=== PATIENT | male | born 1970 | race American Indian/Alaskan Native ===

== ENCOUNTER 2017-12-13 00:48 | Observation (INO) | payer BC ==
[2017-12-13 00:58] VITALS: BMI 35.5
--- NOTE | 2017-12-13 01:24 | ED PDOC ---
Arrival/HPI <Darin Hernandez - Last Filed: 12/13/17 02:42> <Steve Sands - Last Filed: 12/13/17 02:43> - General Chief Complaint: Chest Pain - History of Present Illness Narrative History of Present Illness (Text): 12/13/17 01:17 Pt is a 47 yo M with PMH of CAD s/p 5 stents in 2007 presents to ED with chest pain. Pt states that he initially had left shoulder pain that felt like it radiated to his chest. Pt went to his orthopedist who said he had bone spurs in his left shoulder and gave him a cortisone injection. Pt states that shoulder still hurts after injection. However, prior to arrival patient states that midsternal chest pain worsened, but does not radiate. Pt states that he vomited several times before arrival and was short of breath. Of note, patient had exercise stress test in 2016, which was normal. Pt denied abdominal pain, diarrhea, fever, chills, DAS, or dizziness. PMD: Avery Actuarial Technician: Navin (Steve Sands) Past Medical History - Provider Review Nursing Documentation Reviewed: Yes - Infectious Disease Hx of Infectious Diseases: None - Tetanus Immunization Tetanus Immunization: Unknown - Cardiac Hx ID: Yes Hx Hypertension: Yes - Pulmonary Hx Respiratory Disorders: No - Neurological Hx Neurological Disorder: No - HEENT Hx HEENT Disorder: No - Renal Hx Renal Disorder: No - Endocrine/Metabolic Hx Endocrine Disorders: No - Hematological/Oncological Hx Blood Disorders: No - Integumentary Hx Dermatological Disorder: No - Musculoskeletal/Rheumatological Hx Musculoskeletal Disorders: No - Gastrointestinal Hx Gastrointestinal Disorders: No - Genitourinary/Gynecological Hx Genitourinary Disorders: No - Psychiatric Hx Psychophysiologic Disorder: No Hx Substance Use: No - Surgical History Hx Cardiac Catheterization: Yes (5 stents) <Steve Sands - Last Filed: 12/13/17 02:43> Family/Social History - Physician Review Nursing Documentation Reviewed: Yes Family/Social History: No Known Family HX Smoking Status: Former Smoker Hx Alcohol Use: No Hx Substance Use: No <Steve Sands - Last Filed: 12/13/17 02:43> Allergies/Home Meds <Darin Hernandez - Last Filed: 12/13/17 02:42> <Steve Sands - Last Filed: 12/13/17 02:43> Allergies/Adverse Reactions: Allergies No Known Allergies Allergy (Verified 12/13/17 00:58) Home Medications: Home Meds Medication Instructions Recorded Confirmed Atorvastatin [Lipitor] 80 mg PO DAILY 05/14/16 12/13/17 Clopidogrel [Plavix] 75 mg PO DAILY 05/14/16 12/13/17 Isosorbide Mononitrate ER [Imdur 30 mg PO DAILY 07/11/16 12/13/17 ER] Metoprolol Tartrate [Lopressor] 25 mg PO BID 07/11/16 12/13/17 Review of Systems - Review of Systems Constitutional: Normal Eyes: Normal ENT: Normal Respiratory: SOB Cardiovascular: Chest Pain. absent: Palpitations, Syncope Gastrointestinal: Normal Genitourinary Male: Normal Musculoskeletal: Arthralgias (left shoulder) Skin: Normal Neurological: Normal Endocrine: Normal Hemo/Lymphatic: Normal Psychiatric: Normal <Steve Sands - Last Filed: 12/13/17 02:43> Physical Exam Vital Signs Reviewed: Yes Temperature: Afebrile Blood Pressure: Hypertensive Pulse: Regular Respiratory Rate: Normal Appearance: Positive for: Non-Toxic Pain Distress: Moderate Mental Status: Positive for: Alert and Oriented X 3 - Systems Exam Head: Present: Atraumatic, Normocephalic Extroacular Muscles: Present: EOMI Mouth: Present: Moist Mucous Membranes Neck: Present: Normal Range of Motion Respiratory/Chest: Present: Clear to Auscultation. No: Respiratory Distress, Wheezes, Rales, Rhonchi Cardiovascular: Present: Regular Rate and Rhythm, Normal S1, S2. No: Murmurs, Rub, Muffled Abdomen: No: Tenderness, Distention, Peritoneal Signs, Rebound Back: Present: Normal Inspection Upper Extremity: Present: Normal Inspection Lower Extremity: Present: Normal Inspection Neurological: Present: GCS=15 Skin: Present: Warm, Dry, Normal Color Psychiatric: Present: Alert, Oriented x 3 <Steve Sands - Last Filed: 12/13/17 02:43> Vital Signs Temp Pulse Resp BP Pulse Ox 12/13/17 02:16 99 H 18 149/101 H 100 12/13/17 01:21 98.3 F 95 H 18 163/93 H 100 Medical Decision Making <Darin Hernandez - Last Filed: 12/13/17 02:42> - EKG Interpretation Interpreted by ED Physician: Yes Type: 12 lead EKG Comparison: Similar to previous EKG (Similar to EKG from exercise stress test in 2016.) <Steve Sands - Last Filed: 12/13/17 02:43> ED Course and Treatment: 12/13/17 01:40 Shaji Pettit is a 47 year old male who presents to the emergency department complaining of chest pain.In agreement with resident note, which includes further HPI details. Patient was seen and evaluated with resident, came up with plan and treatment together. (Darin Hernandez) 12/13/17 01:32 Assessment: 47 yo M with PMH of CAD s/p stents presents to ED with chest pain. Plan: - Labs - Cardiac enzymes - EKG - CXR - ASA - Nitro SL 12/13/17 02:18 EKG showed NSR, possible inferior infarct, age undetermined, ST and T wave abnormality, consider anterolateral ischemia. Troponin I 0.07. Discussed results with patient and advised patient that he should be admitted due to his symptoms and history of CAD with stents. Patient acknowledged and agreed. 12/13/17 02:[address] Lind, he agrees with plan and accepts patient under hospitalist service. resident care manager rn made aware. (Steve Sands) - Lab Interpretations Lab Results: 12/13/17 01:19 12/13/17 01:19 Lab Results 12/13/17 01:19: PT 11.0, INR 0.97, APTT 29.5 12/13/17 01:19: Sodium 138, Potassium 4.0, Chloride 101, Carbon Dioxide 22, Anion Gap 20, BUN 17, Creatinine 0.9, Est GFR ( Amer) > 60, Est GFR (Non- Af Amer) > 60, Random Glucose 228 H, Calcium 9.6, Total Bilirubin 0.3, AST 29, ALT 43, Alkaline Phosphatase 67, Lactate Dehydrogenase 487, Total Creatine Kinase 394 H, CK-MB (CK-2) 1.5, CK-MB (CK-2) % Cancelled, Troponin I 0.07, Total Protein 7.6, Albumin 4.4, Globulin 3.2, Albumin/Globulin Ratio 1.4 12/13/17 01:19: WBC 7.8, RBC 4.75, Hgb 15.0, Hct 44.0, MCV 92.6, MCH 31.6, MCHC 34.1, RDW 13.0, Plt Count 250, MPV 9.9, Gran % 81.0 H, Lymph % (Auto) 17.3 L, [place] % (Auto) 1.0, Eos % (Auto) 0.3 L, Baso % (Auto) 0.4, Gran # 6.32, Lymph # ( Auto) 1.4, [place] # (Auto) 0.1, Eos # (Auto) 0.0, Baso # (Auto) 0.03 - RAD Interpretation Radiology Orders: 12/13/17 01:13 CHEST PORTABLE [RAD] Stat - EKG Interpretation EKG Interpretation (Text): 12/13/17 01:40 NSR Possible inferior infarct, age undetermined ST and T wave abnormality, consider anterolateral ischemia (Steve Sands) - Medication Orders Current Medication Orders: Discontinued Medications Aspirin (Aspirin) 325 mg PO STAT STA Stop: 12/13/17 01:37 Last Admin: 12/13/17 01:46 Dose: 325 mg Nitroglycerin (Nitrostat Sl Tab) 0.4 mg SL STAT STA Stop: 12/13/17 01:37 Last Admin: 12/13/17 01:47 Dose: 0.4 mg - PA / [employer] / Resident Statement CRISTIANA has reviewed & agrees with the documentation as recorded. CRISTIANA has examined the patient and agrees with the treatment plan. <Darin Hernandez - Last Filed: 12/13/17 02:42> Disposition/Present on Arrival <Darin Hernandez - Last Filed: 12/13/17 02:42> - Present on Arrival Any Indicators Present on Arrival: No History of DVT/PE: No History of Uncontrolled Diabetes: No Urinary Catheter: No History of Decub. Ulcer: No History Surgical Site Infection Following: None - Disposition Have Diagnosis and Disposition been Completed?: Yes Disposition Time: :27 Patient Plan: Admission <Steve Sands - Last Filed: 12/13/17 02:43> - Disposition Diagnosis: Chest pain Disposition: HOSPITALIZED Patient Problems: Current Active Problems Problem Status Onset Chest pain Acute Condition: STABLE Discharge Instructions (ExitCare): Chest Pain (ED) Forms: [employer] ([place])
[2017-12-13 01:54] LABS: ALB/GLOB RATIO 1.4 (1.1-1.8); ALBUMIN 4.4 g/dL (3.0-4.8); ALT/SGPT 43 U/L (7-56); AST/SGOT 29 U/L (17-59); BLOOD UREA NITROGEN 17 mg/dL (7-21); CALCIUM 9.6 mg/dL (8.4-10.5); GFR AFRICAN-AMERICAN > 60; GFR NON-AFRICAN AMERICAN > 60
[2017-12-13 01:58] LABS: BASO # 0.03 K/mm3 (0.0-2.0); BASO % 0.4 % (0.0-3.0); EOS % 0.3 % (1.5-5.0); GRAN # 6.32 (1.4-6.5); LYMPH # 1.4 (1.2-3.4); LYMPH % 17.3 % (22.0-35.0); MEAN CELL VOLUME 92.6 fl (80.0-105.0); MEAN CORPUSCULAR HEMOGLOBIN 31.6 pg (25.0-35.0); MEAN CORPUSCULAR HGB CONC 34.1 g/dl (31.0-37.0); MEAN PLATELET VOLUME 9.9 fl (7.0-11.0); MONO # 0.1 (0.1-0.6); RBC 4.75 10^6/uL (3.5-6.1); WHITE BLOOD COUNT 7.8 10^3/ul (4.5-11.0)
[2017-12-13 01:59] LABS: INR 0.97 (0.93-1.08); PARTIAL THROMBOPLASTIN TIME 29.5 Seconds (25.1-36.5)
[2017-12-13 02:05] LABS: TROPONIN I 0.07 ng/mL
[2017-12-13 02:10] LABS: CK-MB 1.5 ng/mL (0.0-3.6)
--- NOTE | 2017-12-13 03:18 | CP.PCM.HP ---
History of Present Illness - History of Present Illness History of Present Illness: This patient is a 47 year old male with PMHx of HTN and CAD w/ 5 stents who presents complaining of non-reproducible sub-sternal chest pain. Patient states he has been dealing with shoulder pain for about 2 weeks. He got an X- ray which showed bone spurs. He went to the doctor and got a cortisone injection about 8:00PM last night. He ate at [employer] around 9:30 PM then went home to sleep. He was awakened with sharp 7/10 chest pain and shoulder pain around 12:30 this morning. He describes it as shoulder pain that radiates to his chest. Upon waking up he also had an episode of NBNB vomiting. He came to the E.R following that episode. Patient used no modalities at home to treat the pain. His chest pain began to resolve when he came to the ED but his shoulder pain remained at the same level. At the time of admission examination he rated his chest pain a 1/10 and stated it became more achy than sharp. ROS POSITIVES: Chest pain, Shoulder pain, Vomiting. NEGATIVES: Fever, chills, SOB, palpitations, abdominal pain, nausea, changes in bowel habits, urinary symptoms. PMHx: HTN, CAD PSHx: Cardiac Cath with Stent in 2007 Allergies: NKDA Social Hx: Former 1PPD smoker for about 5 years. Quit 9 months ago. Drinks alcohol on weekends. 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 Holden Present on Admission - Present on Admission Any Indicators Present on Admission: No Review of Systems - Review of Systems Review of Systems: As per HPI Past Patient History - Infectious Disease Hx of Infectious Diseases: None - Tetanus Immunizations Tetanus Immunization: Unknown - Past Social History Smoking Status: Former Smoker - CARDIAC Hx Heart Attack: Yes Hx Hypertension: Yes - PULMONARY Hx Respiratory Disorders: No - NEUROLOGICAL Hx Neurological Disorder: No - HEENT Hx HEENT Problems: No - RENAL Hx Chronic Kidney Disease: No - ENDOCRINE/METABOLIC Hx Endocrine Disorders: No - HEMATOLOGICAL/ONCOLOGICAL Hx Blood Disorders: No - INTEGUMENTARY Hx Dermatological Problems: No - MUSCULOSKELETAL/RHEUMATOLOGICAL Hx Musculoskeletal Disorders: No - GASTROINTESTINAL Hx Gastrointestinal Disorders: No - GENITOURINARY/GYNECOLOGICAL Hx Genitourinary Disorders: No - PSYCHIATRIC Hx Psychophysiologic Disorder: No Hx Substance Use: No - SURGICAL HISTORY Hx Cardiac Catheterization: Yes (5 stents) Meds Allergies/Adverse Reactions: Allergies Allergy/AdvReac Type Severity Reaction Status Date / Time No Known Allergies Allergy Verified 12/13/17 00:58 Physical Exam - Constitutional Appears: Well, Non-toxic, No Acute Distress - Head Exam Head Exam: ATRAUMATIC, NORMAL INSPECTION, NORMOCEPHALIC - Eye Exam Eye Exam: EOMI, Normal appearance. absent: Scleral icterus - ENT Exam ENT Exam: Mucous Membranes Moist - Respiratory Exam Respiratory Exam: Clear to Auscultation Bilateral, NORMAL BREATHING PATTERN. absent: Accessory Muscle Use, Decreased Breath Sounds, Rales, Rhonchi, Wheezes, Respiratory Distress, Stridor - Cardiovascular Exam Cardiovascular Exam: RRR, +S1, +S2. absent: JVD - GI/Abdominal Exam GI & Abdominal Exam: Normal Bowel Sounds, Soft. absent: Tenderness - Extremities Exam Extremities exam: Positive for: normal capillary refill, normal inspection. Negative for: calf tenderness, pedal edema, tenderness - Neurological Exam Neurological exam: Alert, Oriented x3 - Psychiatric Exam Psychiatric exam: Normal Affect, Normal Mood - Skin Skin Exam: Dry, Intact, Normal Color, Warm Results - Vital Signs Recent Vital Signs: Last Vital Signs Temp 98.3 F 12/13/17 01:21 Pulse 101 H 12/13/17 02:56 Resp 18 12/13/17 02:56 BP 148/91 H 12/13/17 02:56 Pulse Ox 100 12/13/17 02:56 - Labs Result Diagrams: 12/13/17 01:19 12/13/17 01:19 Labs: Laboratory Results - last 24 hr 12/13/17 12/13/17 12/13/17 01:19 01:19 01:19 WBC 7.8 RBC 4.75 Hgb 15.0 Hct 44.0 MCV 92.6 MCH 31.6 MCHC 34.1 RDW 13.0 Plt Count 250 MPV 9.9 Gran % 81.0 H Lymph % (Auto) 17.3 L [place] % (Auto) 1.0 Eos % (Auto) 0.3 L Baso % (Auto) 0.4 Gran # 6.32 Lymph # (Auto) 1.4 [place] # (Auto) 0.1 Eos # (Auto) 0.0 Baso # (Auto) 0.03 PT 11.0 INR 0.97 APTT 29.5 Sodium 138 Potassium 4.0 Chloride 101 Carbon Dioxide 22 Anion Gap 20 BUN 17 Creatinine 0.9 Est GFR ( Amer) > 60 Est GFR (Non-Af Amer) > 60 Random Glucose 228 H Calcium 9.6 Total Bilirubin 0.3 AST 29 ALT 43 Alkaline Phosphatase 67 Lactate Dehydrogenase 487 Total Creatine Kinase 394 H CK-MB (CK-2) 1.5 CK-MB (CK-2) % Cancelled Troponin I 0.07 Total Protein 7.6 Albumin 4.4 Globulin 3.2 Albumin/Globulin Ratio 1.4 Assessment & Plan - Assessment and Plan (Free Text) Assessment: 47 year old male with PMHx of HTN and CAD w/ 5 stents who presents complaining of non-reproducible sub-sternal chest pain. Admitted to observation for evaluation and treatment of chest pain and to rule out ACS. Plan: Chest Pain, R/O ACS ASA 325/Nitrostat Given in ED Trop 1: 0.07 CXR: PENDING Read EKG: NSR with ST and T wave abnormalities. Similar to EKG seen on Stress Test from 2016. F/U Official Read Cardio Consult (Dr. Holden) Serial EKG's Serial Trops Cont. Home Medications Lipitor 80 Daily. Patient should be advised to take his lipitor in the Evening. Plavix 75 Daily Metoprolol 25 BID ASA 81 Daily HgBA1C in AM Fasting Lipid Panel Right Shoulder Pain DDx: Bone Spur/Rotator Cuff Pathology Ibuprofen 600mg Q6H PRN Toradol 30 IVP Given Once Consider Ortho consult Patient should F/U Outpatient with Orthopedics/Primary Sports Med Physician HTN (Acute on Chronic) Cont. Home Medications Metoprolol 25 BID Hyralazine PRN Consider adding Jose Manuel Inhibitor or ARB Proph PTX/Home Plavix/SCD's Patient discussed with Attending (Dr. Lind) Abril Melgoza, PGY1
[2017-12-13] MEDS: Pantoprazole 40 mg EC Tab PO SCH (05:16)
[2017-12-13 07:04] LABS: BASO # 0.01 K/mm3 (0.0-2.0); BASO % 0.1 % (0.0-3.0); EOS % 0.1 % (1.5-5.0); GRAN # 6.27 (1.4-6.5); GRAN % 79.5 % (50.0-68.0); HEMOGLOBIN 14.8 g/dL (14.0-18.0); LYMPH # 1.4 (1.2-3.4); LYMPH % 17.8 % (22.0-35.0); MEAN CELL VOLUME 91.8 fl (80.0-105.0); MEAN CORPUSCULAR HGB CONC 33.8 g/dl (31.0-37.0); MEAN PLATELET VOLUME 9.9 fl (7.0-11.0); MONO # 0.2 (0.1-0.6); MONO % 2.5 % (1.0-6.0); RBC 4.77 10^6/uL (3.5-6.1); RED CELL DISTRIBUTION WIDTH 12.8 % (11.5-14.5); WHITE BLOOD COUNT 7.9 10^3/ul (4.5-11.0)
[2017-12-13 07:31] LABS: ALB/GLOB RATIO 1.3 (1.1-1.8); ALBUMIN 4.1 g/dL (3.0-4.8); ALT/SGPT 38 U/L (7-56); AST/SGOT 38 U/L (17-59); BLOOD UREA NITROGEN 16 mg/dL (7-21); CALCIUM 9.9 mg/dL (8.4-10.5); GFR AFRICAN-AMERICAN > 60; GFR NON-AFRICAN AMERICAN > 60; HDL CHOLESTEROL 49 mg/dL (29-60)
[2017-12-13 07:33] LABS: LDL CHOLESTEROL 121 mg/dL (0-129)
--- NOTE | 2017-12-13 09:02 | RAD ---
HISTORY: chest pain COMPARISON: No prior. FINDINGS: LUNGS: No active pulmonary disease. PLEURA: No significant pleural effusion identified, no pneumothorax apparent. CARDIOVASCULAR: Normal. OSSEOUS STRUCTURES: No significant abnormalities. VISUALIZED UPPER ABDOMEN: Normal. OTHER FINDINGS: None. IMPRESSION: No active disease.
[2017-12-13] MEDS ORDERED: Enoxaparin 40 mg Syringe SC SCH (10:00)
[2017-12-13 10:55] LABS: CK-MB 12.8 ng/mL (0.0-3.6)
[2017-12-13] MEDS ORDERED: Verapamil 2 ML ONE (14:22)
[2017-12-13] MEDS ORDERED: Lidocaine 2% Inj (20ml) ONE (14:22)
[2017-12-13] MEDS ORDERED: Phenylephrine 10 mg/ml Inj ONE (14:23)
[2017-12-13] MEDS ORDERED: Nitroglycerin 50mg in D5W 50 MG/250 ML BOTTLE IV ONE (14:23)
[2017-12-13] MEDS ORDERED: HEPARIN SODIUM/NS 2,000 ML IV ONE (14:23)
[2017-12-13] MEDS ORDERED: Iohexol 350mgl/ml 50 ML ONE (14:23)
[2017-12-13] MEDS ORDERED: Midazolam 2 MG/2 ML VIAL ONE (15:02)
[2017-12-13] MEDS ORDERED: Eptifibatide 20 mg/10mL Inj IVP ONE (15:31)
[2017-12-13] MEDS ORDERED: Morphine 5 MG/ML SYRINGE ONE (15:36)
[2017-12-13] MEDS ORDERED: Iohexol 350 MG/100 ML VIAL ONE (15:47)
[2017-12-13] MEDS ORDERED: Sodium Chloride 0.9% 1,000 ML IV SCH (16:30)
--- NOTE | 2017-12-13 18:22 | CARD ---
APPROVED REPORT Procedure(s) performed: Left Heart Catheterization PTCA with Stenting of Distal RCA with TRINIDAD PTCA with Stenting of MId Circumflex with TRINIDAD HISTORY The patient is a 47 year-old male with a history of : previous UT (> 7 days), previous diagnostic cath, tobacco history() : The patient is a former smoker , previous PCI (The PCI date was 10/21/2007), hypertension , dyslipidemia , Admitted with NSTEMI /ACS. INDICATION The indication(s) include : non-STEMI . CASE TECHNIQUE The patient was brought emergently to the Cardiac Catheterization Laboratory in a fasting state and was prepped and draped in a sterile manner. The left wrist was infiltrated with 2% Lidocaine subcutaneous anesthesia. A 6FR GLIDESHEATH ACCESS KIT sheath was inserted into the left radial artery without difficulty. Coronary angiography was performed using coronary diagnostic catheters. The left coronary system was accessed and visualized with a Diagnostic ,5 Fr JL 4 catheter. The right coronary system was accessed and visualized with a Diagnostic ,5 Fr JR 4 catheter. The left ventricle was accessed and visualized with a 5 Fr Pigtail 145 (Angled) catheter. Left ventricular/Aortic Valve gradient assessed on pullback. Left ventriculogram was performed in MCCORMICK projection. The patient tolerated the procedure well and there were no complications associated with the procedure. Vessel Analysis The patient's coronary anatomy is co-dominant. The left main coronary artery is a medium size vessel without significant stenosis. The left main bifurcates to the left anterior descending and circumflex. The left anterior descending artery is a medium size vessel with diffuse calcification noted throughout this vessel and without significant stenosis. Patent stent in MIsD LAD The first diagonal branch is a medium size vessel with diffuse calcification noted throughout this vessel and without significant stenosis. The second diagonal branch is a medium size vessel with diffuse calcification noted throughout this vessel and without significant stenosis. The circumflex artery is a large size vessel with diffuse calcification noted throughout this vessel and with significant stenosis. Mid 90% instent restenosis, Patent Distal stent There is a 95% stenosis in the mid segment. The first obtuse marginal branch is a small size vessel with diffuse calcification noted throughout this vessel and without significant stenosis. The second obtuse marginal branch is a small size vessel with diffuse calcification noted throughout this vessel and without significant stenosis. The third obtuse marginal branch is a small size vessel with diffuse calcification noted throughout this vessel and without significant stenosis. The left posterior descending artery is a medium size vessel with diffuse calcification noted throughout this vessel and without significant stenosis. The right coronary artery is a medium size vessel with diffuse calcification noted throughout this vessel and with significant stenosis. There is a 80% stenosis in the distal segment. in B/w two stents The right posterior descending artery is a medium size vessel with diffuse calcification noted throughout this vessel and without significant stenosis. The right posterolateral branch is a medium size vessel with diffuse calcification noted throughout this vessel and without significant stenosis. Left Ventricle The left ventricle is borderline in size with mildly decresed contractility. Ischemic cardiomyopathy. The left ventricular ejection fraction is estimated to be 45-50%. The left ventricular end diastolic pressure is 20 mmHg. There was no gradient across the aortic valve upon pullback. PCI Technique Lesion Anticoagulation was achieved with Heparin. Percutaneous coronary intervention was performed on the Distal right coronary artery. The lesion stenosis prior to intervention was 80% with ARON 2 flow. A 6 Fr JR 4 SH Guide Catheter was used to engage the ostium. A Luge 182 Interventional Guidewire was used to cross the lesion. BALLOON DILATION A Balloon catheter 2.5 x 10 mm Sprinter RX was inserted and inflated up to 18.00atm for 25seconds. STENT DEPLOYMENT A drug-eluting stent 3.0 x 12 mm Resolute TRINIDAD was inserted and inflated up to 18.00atm for 25seconds. Final angiography reveals 0 % stenosis with ARON 3 flow. PCI Technique Lesion 2 Percutaneous Coronary Intervention was performed on the Distal circumflex artery segment. The lesion stenosis prior to intervention was 95% with ARON 2 flow. A 6 Fr XB 3 Guide Catheter was used to engage the ostium. A Luge 182 Interventional Guidewire was used to cross the lesion. BALLOON DILATION A Balloon catheter 2.5 x 10 mm Sprinter RX was inserted and inflated up to 15.00atm for 24seconds. STENT DEPLOYMENT A drug-eluting stent 4.0 x 18 mm Resolute TRINIDAD was inserted and inflated up to 12.00atm for 15seconds. POST STENT DEPLOYMENT BALLOON DILATION A Balloon catheter 4.5 x 10 mm Sprinter RX was inserted and inflated up to 15.00atm for 24seconds. Final angiography reveals 0 % stenosis with ARON 3 flow. Conclusion Two Vessel Critical Disease involving distal RCA in B/w stents 80% stenosis, and Mid Circumflex 90% in stent restenosis. Patent stent in Distal Circumflex and Mid LAD LVEF-45-50%, EDP-20 mmof Hg. Successful pTCA with TRINIDAD of Distal RCA and Mid Circumflex. Recommendations Daily ASA with Plavix for at least one year Aggressive Medical TherapyCardiac Risk Reduction Program Weight Loss Reduction Program CC; DRs. Varela/ Navin.
--- NOTE | 2017-12-13 18:38 | CON ---
DATE: REASON FOR CONSULTATION: Cardiac evaluation, left shoulder pain, history of coronary artery disease. BRIEF CLINICAL HISTORY: This is a 47-year-old male with past medical history significant for coronary artery disease, status post stent in 2007; subsequently, multiple stress tests negative, last stress test was in 2015; who came in with a complaint of left shoulder pain for many years, probably the bony spur. Ultimately, the patient found the doctor who did intra-articular injection around 8 o' clock at night. Around 8:30, then the patient went home and took shower and slept, but then the patient woke up with more pain in the left shoulder radiating into the chest wall, came to the emergency room. It is still painful and movement feels painful. He denies any chest pain, denies any shortness of breath, denies any palpitation. PAST MEDICAL HISTORY: Significant for hypertension, hyperlipidemia, coronary artery disease, status post stent in 2007. ALLERGIES: NO KNOWN DRUG ALLERGIES. SOCIAL HISTORY: He is 1-pack smoker, quit 9 months ago; he used to smoke for 5 years. Drinks alcohol in the weekends. Denies any substance abuse. FAMILY HISTORY: Significant for coronary artery disease in mother and some other member of the family with CABG, father has a gout. REVIEW OF SYSTEMS: As per HPI. PREVIOUS CARDIAC WORKUP: As follows: The patient's last stress test was in 07/11/2016 that showed a normal myocardial perfusion study, essentially normal ejection fraction of 62%. In comparison to the last study in 12/08/2013, there is no significant change. PHYSICAL EXAMINATION VITAL SIGNS: Temperature afebrile, heart rate 90, blood pressure 158/96. HEENT: PERRLA. Extraocular muscles intact. NECK: Supple. No carotid bruits or thyromegaly. CHEST: Clear to auscultation. HEART: S1 and S2, regular. ABDOMEN: Soft. EXTREMITIES: Clubbing and cyanosis, negative. Also, left shoulder joint movement is restricted and is painful on movement and also tenderness around the shoulder joint. EKG shows normal sinus ST depression lateral lead. LABORATORY DATA: Blood workup as follows: WBC of 7.9, hemoglobin 14.8, hematocrit 43.8, platelet count 252. Chemistry shows sodium 130, potassium 4.4, chloride 102, carbon dioxide 23, anion gap 15, BUN 6, and creatinine 0.8. IMPRESSION: Atypical chest pain; shoulder pain, status post intra-articular injection, pain increased after more intra-articular injections, one episode of vomiting, the patient thought it is a reaction; history of hypertension; hyperlipidemia; diabetes; obesity; history of coronary artery disease, status post stent in 2007, status post stress test in 06/2016. RECOMMENDATION: Followup serial CPK and troponin. If serial CPK and troponin remains negative, patient can be discharged. Followup as outpatient by a stress test with Dr. Hodlen . Discussed with the resident. Thank you, Dr. Saldaña, for providing us the opportunity in taking care of the patient, Shaji Spivey. Buffy Dominguez MD
[2017-12-13 20:15] LABS: BASO # 0.02 K/mm3 (0.0-2.0); BASO % 0.1 % (0.0-3.0); EOS % 0.1 % (1.5-5.0); GRAN # 12.72 (1.4-6.5); HEMOGLOBIN 15.5 g/dL (14.0-18.0); LYMPH % 18.1 % (22.0-35.0); MEAN CELL VOLUME 91.1 fl (80.0-105.0); MEAN CORPUSCULAR HEMOGLOBIN 31.4 pg (25.0-35.0); MEAN CORPUSCULAR HGB CONC 34.5 g/dl (31.0-37.0); MEAN PLATELET VOLUME 9.6 fl (7.0-11.0); MONO % 5.7 % (1.0-6.0); RBC 4.93 10^6/uL (3.5-6.1); RED CELL DISTRIBUTION WIDTH 12.8 % (11.5-14.5); WHITE BLOOD COUNT 16.7 10^3/ul (4.5-11.0)
[2017-12-13 20:24] LABS: BLOOD UREA NITROGEN 13 mg/dL (7-21); CALCIUM 9.9 mg/dL (8.4-10.5); GFR AFRICAN-AMERICAN > 60; GFR NON-AFRICAN AMERICAN > 60
--- NOTE | 2017-12-13 22:15 | CARD ---
APPROVED REPORT EKG Measurement Heart [id number] [place] [id number] <Conclusion> Normal sinus rhythm Minimal voltage criteria for LVH, may be normal variant Inferior infarct, age undetermined ST & T wave abnormality, consider anterolateral ischemia Abnormal ECG
--- NOTE | 2017-12-13 22:19 | CARD ---
APPROVED REPORT EKG Measurement Heart [id number] [place] [id number] <Conclusion> Normal sinus rhythm Minimal voltage criteria for LVH, may be normal variant Inferior infarct, age undetermined ST & T wave abnormality, consider anterolateral ischemia Abnormal ECG
--- NOTE | 2017-12-13 22:34 | CARD ---
APPROVED REPORT EKG Measurement Heart [id number] [place] [id number] <Conclusion> Normal sinus rhythm Inferior infarct, age undetermined ST & T wave abnormality, consider lateral ischemia Abnormal ECG
--- NOTE | 2017-12-13 22:37 | CARD ---
APPROVED REPORT EKG Measurement Heart [id number] [place] 158P41 [id number] <Conclusion> Normal sinus rhythm Possible Inferior infarct, age undetermined ST & T wave abnormality, consider anterolateral ischemia Abnormal ECG
--- NOTE | 2017-12-14 01:08 | CON ---
DATE: 12/13/2017 ADDENDUM Addendum to initial consult dictated in morning. REASON FOR ADDENDUM: The patient subsequently made troponin positive, consistent with non-ST segment myocardial infarction. Since the patient had significant coronary artery disease, a repeat troponin was done, and was found to be 0.5, and then the repeat one was 2.5. In view of the above, the patient was taken to the public works laborer. Risks, benefits and alternatives were discussed with the patient and the patient agreed. Then subsequently cardiac catheterization revealed high-grade stenosis in the circumflex and 95% stenosis in the mid segment of the circumflex where the distal stent was patent in the circumflex. Mid circumflex had in-stent restenosis at 95%, and distal RCA had 80% stenosis. Ejection fraction was 45%-50%. Successful PTCA with a drug-eluting stent was done in mid and distal RCA. Plan is to continue aspirin 81 mg daily, Plavix 75 mg daily, atorvastatin 80 mg daily, metoprolol 25 mg b.i.d., and added lisinopril 10 mg daily. Possible discharge home tomorrow. Discussed with the patient, discussed with the . DIAGNOSES: 1. Unstable angina, status post percutaneous transluminal coronary angioplasty. 2. Non-ST segment myocardial infarction. Thank you Dr. Saldaña, for providing us the opportunity in taking care of the patient, Shaji Spivey. Buffy Dominguez MD cc: Suzan Saldaña MD
[2017-12-14 05:53] VITALS: RESP 18; TEMP 97.7; O2SAT 100
--- NOTE | 2017-12-14 06:46 | CP.PCM.DIS ---
<Keon Garcia S - Last Filed: 12/14/17 13:10> Provider - Provider Date of Admission: 12/13/17 02:35 Attending physician: Buffy Adamson MD Primary care physician: Therese Varela MD Consults: Cardiology: Dr. Holden/Dr. Dominguez Time Spent in preparation of Discharge (in minutes): 40 Diagnosis - Discharge Diagnosis (1) Non-ST elevated myocardial infarction Status: Acute Priority: High (2) Coronary stent restenosis Status: Acute Priority: High (3) Coronary artery disease Status: Chronic Priority: High (4) Encounter for smoking cessation counseling Status: Acute Priority: High (5) Dietary counseling Status: Acute Priority: High (6) Impaired glucose tolerance Status: Acute Priority: High (7) History of hypertension Status: Chronic Priority: Medium Hospital Course - Lab Results Lab Results: Most Recent Lab Values WBC 16.7 10^3/ul (4.5-11.0) H D 12/13/17 20:07 RBC 4.93 10^6/uL (3.5-6.1) 12/13/17 20:07 Hgb 15.5 g/dL (14.0-18.0) 12/13/17 20:07 Hct 44.9 % (42.0-52.0) 12/13/17 20:07 MCV 91.1 fl (80.0-105.0) 12/13/17 20:07 MCH 31.4 pg (25.0-35.0) 12/13/17 20:07 MCHC 34.5 g/dl (31.0-37.0) 12/13/17 20:07 RDW 12.8 % (11.5-14.5) 12/13/17 20:07 Plt Count 246 10^3/uL (120.0-450.0) 12/13/17 20:07 MPV 9.6 fl (7.0-11.0) 12/13/17 20:07 Gran % 76.0 % (50.0-68.0) H 12/13/17 20:07 Lymph % (Auto) 18.1 % (22.0-35.0) L 12/13/17 20:07 Shelby % (Auto) 5.7 % (1.0-6.0) 12/13/17 20:07 Eos % (Auto) 0.1 % (1.5-5.0) L 12/13/17 20:07 Baso % (Auto) 0.1 % (0.0-3.0) 12/13/17 20:07 Gran # 12.72 (1.4-6.5) H 12/13/17 20:07 Lymph # (Auto) 3.0 (1.2-3.4) 12/13/17 20:07 Shelby # (Auto) 1.0 (0.1-0.6) H 12/13/17 20:07 Eos # (Auto) 0.0 (0.0-0.7) 12/13/17 20:07 Baso # (Auto) 0.02 K/mm3 (0.0-2.0) 12/13/17 20:07 PT 11.0 SECONDS (9.4-12.5) 12/13/17 01:19 INR 0.97 (0.93-1.08) 12/13/17 01:19 APTT 29.5 Seconds (25.1-36.5) 12/13/17 01:19 Sodium 137 mmol/L (132-148) 12/13/17 20:07 Potassium 4.4 mmol/L (3.6-5.0) 12/13/17 20:07 Chloride 99 mmol/L (98-107) 12/13/17 20:07 Carbon Dioxide 25 mmol/L (21-33) 12/13/17 20:07 Anion Gap 17 (10-20) 12/13/17 20:07 BUN 13 mg/dL (7-21) 12/13/17 20:07 Creatinine 0.9 mg/dl (0.8-1.5) 12/13/17 20:07 Est GFR ( Amer) > 60 12/13/17 20:07 Est GFR (Non-Af Amer) > 60 12/13/17 20:07 Random Glucose 130 mg/dL (70-110) H 12/13/17 20:07 Hemoglobin A1c 6.1 % (4.2-6.5) 12/13/17 06:30 Calcium 9.9 mg/dL (8.4-10.5) 12/13/17 20:07 Total Bilirubin 0.4 mg/dL (0.2-1.3) 12/13/17 06:30 AST 38 U/L (17-59) 12/13/17 06:30 ALT 38 U/L (7-56) 12/13/17 06:30 Alkaline Phosphatase 72 U/L (38-126) 12/13/17 06:30 Lactate Dehydrogenase 487 U/L (333-699) 12/13/17 01:19 Total Creatine Kinase 425 U/L (35-230) H 12/13/17 10:25 CK-MB (CK-2) 12.8 ng/mL (0.0-3.6) H 12/13/17 10:25 CK-MB (CK-2) % 3.0 % (2.5-3.0) 12/13/17 10:25 Troponin I 2.38 ng/mL H* D 12/13/17 13:10 Total Protein 7.3 g/dL (5.8-8.3) 12/13/17 06:30 Albumin 4.1 g/dL (3.0-4.8) 12/13/17 06:30 Globulin 3.2 gm/dL 12/13/17 06:30 Albumin/Globulin Ratio 1.3 (1.1-1.8) 12/13/17 06:30 Triglycerides 106 mg/dL (35-160) 12/13/17 06:30 Cholesterol 186 mg/dL (130-200) 12/13/17 06:30 LDL Cholesterol Direct 121 mg/dL (0-129) 12/13/17 06:30 HDL Cholesterol 49 mg/dL (29-60) 12/13/17 06:30 - Hospital Course Hospital Course: Initial History of Present Illness on 12/13/17: "This patient is a 47 year old male with PMHx of HTN and CAD w/ 5 stents who presents complaining of non-reproducible sub-sternal chest pain. Patient states he has been dealing with shoulder pain for about 2 weeks. He got an X- ray which showed bone spurs. He went to the doctor and got a cortisone injection about 8:00PM last night. He ate at [employer] around 9:30 PM then went home to sleep. He was awakened with sharp 7/10 chest pain and shoulder pain around 12:30 this morning. He describes it as shoulder pain that radiates to his chest. Upon waking up he also had an episode of NBNB vomiting. He came to the E.R following that episode. Patient used no modalities at home to treat the pain. His chest pain began to resolve when he came to the ED but his shoulder pain remained at the same level. At the time of admission examination he rated his chest pain a 1/10 and stated it became more achy than sharp." Hospital Course: Patient admitted for chest pain and to rule out acute coronary syndrome. Patient 's EKG showed some ST segment depressions but no evidence of ST elevations. Initial troponin was negative but second and third troponins continually became markedly elevated indicating non-ST segment myocardial infarction. Patient was taken for cardiac catheterization on 12/13/17. Per report, patient had mid circumflex in-stent restenosis at 95% and distal RCA had 80% stenosis. Two drug eluting stents placed. One was placed in the mid circumflex and one in the distal right coronary arteries. Lisinopril was added to the patient's medication regimen, and Lipitor was increased to 80 mg daily. Patient found to have elevated hemoglobin A1c at 6.1. Patient was counseled on smoking cessation , heart healthy diet, exercise, and weight reduction. Patient is to follow up with Dr. Varela and Dr. Dominguez within 1 week of discharge. This is a summary of the hospital course. For more information, refer to the medical records. Discharge Exam - Head Exam Head Exam: ATRAUMATIC, NORMOCEPHALIC - Eye Exam Eye Exam: EOMI, Normal appearance - ENT Exam ENT Exam: Mucous Membranes Moist - Respiratory Exam Respiratory Exam: Clear to PA & Lateral, NORMAL BREATHING PATTERN. absent: Rales, Rhonchi, Wheezes - Cardiovascular Exam Cardiovascular Exam: REGULAR RHYTHM, +S1, +S2 - GI/Abdominal Exam GI & Abdominal Exam: Normal Bowel Sounds, Soft. absent: Distended, Guarding, Tenderness Additional comments: obese body habitus - Extremities Exam Extremities exam: pedal pulses present Additional comments: Site of catheterization (left wrist) with no hematoma - Neurological Exam Neurological exam: Alert, CN II-XII Intact, Oriented x3 - Psychiatric Exam Psychiatric exam: Normal Affect, Normal Mood - Skin Skin Exam: Dry, Warm Discharge Plan - Discharge Medications Prescriptions: Atorvastatin [Lipitor] 80 mg PO DAILY #30 tab Lisinopril [Zestril] 10 mg PO DAILY #30 tab - Follow Up Plan Condition: STABLE Disposition: HOME/ ROUTINE Instructions: Heart Healthy Diet, Chest Pain (DC), Low Carbohydrate Diet, Atorvastatin, Lisinopril Additional Instructions: Discharge instructions 1. follow up with primary care doctor in 1 week 2. follow up with water valve mechanic in 1-2 weeks. Nursing 1. Resume medications as scheduled 2. If symptoms return or worsen, please report to nearest Emergency Department or call 911. Referrals: Buffy Dominguez MD [Staff Provider] - Therese Henderson MD [Primary Care Provider] - <Suzan Saldaña - Last Filed: 12/14/17 14:35> Provider - Provider Date of Admission: 12/13/17 02:35 Attending physician: Buffy Adamson MD Primary care physician: Therese Varela MD Hospital Course - Lab Results Lab Results: Most Recent Lab Values WBC 12.0 10^3/ul (4.5-11.0) H D 12/14/17 07:00 RBC 4.62 10^6/uL (3.5-6.1) 12/14/17 07:00 Hgb 14.1 g/dL (14.0-18.0) 12/14/17 07:00 Hct 42.3 % (42.0-52.0) 12/14/17 07:00 MCV 91.6 fl (80.0-105.0) 12/14/17 07:00 MCH 30.5 pg (25.0-35.0) 12/14/17 07:00 MCHC 33.3 g/dl (31.0-37.0) 12/14/17 07:00 RDW 12.8 % (11.5-14.5) 12/14/17 07:00 Plt Count 233 10^3/uL (120.0-450.0) 12/14/17 07:00 MPV 9.8 fl (7.0-11.0) 12/14/17 07:00 Gran % 70.6 % (50.0-68.0) H 12/14/17 07:00 Lymph % (Auto) 23.1 % (22.0-35.0) 12/14/17 07:00 Shelby % (Auto) 6.0 % (1.0-6.0) 12/14/17 07:00 Eos % (Auto) 0.2 % (1.5-5.0) L 12/14/17 07:00 Baso % (Auto) 0.1 % (0.0-3.0) 12/14/17 07:00 Gran # 8.45 (1.4-6.5) H 12/14/17 07:00 Lymph # (Auto) 2.8 (1.2-3.4) 12/14/17 07:00 Shelby # (Auto) 0.7 (0.1-0.6) H 12/14/17 07:00 Eos # (Auto) 0.0 (0.0-0.7) 12/14/17 07:00 Baso # (Auto) 0.01 K/mm3 (0.0-2.0) 12/14/17 07:00 PT 11.0 SECONDS (9.4-12.5) 12/13/17 01:19 INR 0.97 (0.93-1.08) 12/13/17 01:19 APTT 29.5 Seconds (25.1-36.5) 12/13/17 01:19 Sodium 139 mmol/L (132-148) 12/14/17 07:00 Potassium 4.2 mmol/L (3.6-5.0) 12/14/17 07:00 Chloride 100 mmol/L (98-107) 12/14/17 07:00 Carbon Dioxide 28 mmol/L (21-33) 12/14/17 07:00 Anion Gap 15 (10-20) 12/14/17 07:00 BUN 14 mg/dL (7-21) 12/14/17 07:00 Creatinine 0.8 mg/dl (0.8-1.5) 12/14/17 07:00 Est GFR ( Amer) > 60 12/14/17 07:00 Est GFR (Non-Af Amer) > 60 12/14/17 07:00 Random Glucose 113 mg/dL (70-110) H 12/14/17 07:00 Hemoglobin A1c 6.1 % (4.2-6.5) 12/13/17 06:30 Calcium 9.3 mg/dL (8.4-10.5) 12/14/17 07:00 Phosphorus 4.5 mg/dL (2.5-4.5) 12/14/17 07:00 Magnesium 1.9 mg/dL (1.7-2.2) 12/14/17 07:00 Total Bilirubin 0.7 mg/dL (0.2-1.3) 12/14/17 07:00 AST 42 U/L (17-59) 12/14/17 07:00 ALT 37 U/L (7-56) 12/14/17 07:00 Alkaline Phosphatase 49 U/L (38-126) 12/14/17 07:00 Lactate Dehydrogenase 487 U/L (333-699) 12/13/17 01:19 Total Creatine Kinase 425 U/L (35-230) H 12/13/17 10:25 CK-MB (CK-2) 12.8 ng/mL (0.0-3.6) H 12/13/17 10:25 CK-MB (CK-2) % 3.0 % (2.5-3.0) 12/13/17 10:25 Troponin I 2.38 ng/mL H* D 12/13/17 13:10 Total Protein 6.6 g/dL (5.8-8.3) 12/14/17 07:00 Albumin 3.7 g/dL (3.0-4.8) 12/14/17 07:00 Globulin 2.9 gm/dL 12/14/17 07:00 Albumin/Globulin Ratio 1.3 (1.1-1.8) 12/14/17 07:00 Triglycerides 106 mg/dL (35-160) 12/13/17 06:30 Cholesterol 186 mg/dL (130-200) 12/13/17 06:30 LDL Cholesterol Direct 121 mg/dL (0-129) 12/13/17 06:30 HDL Cholesterol 49 mg/dL (29-60) 12/13/17 06:30 Attending/Attestation - Attestation I have personally seen and examined this patient.: Yes I have fully participated in the care of the patient.: Yes I have reviewed all pertinent clinical information, including history, physical exam and plan: Yes Notes (Text): 12/14/17 14:33 attending note; Patient seen and examined with resident. Patient is a 47-year old male with a past medical history of coronary artery disease with stent placement in 2007, active smoking, hypercholesterolemia, obesity, left shoulder pain is admitted with chest pain and left shoulder pain. Patient got steroid injection of the left shoulder 2 days ago. Currently cardiac enzymes positive. Status post cardiac cath and RCA/circumflex stent placement. Educated about the need for diet, exercise and weight reduction. Complete smoking cessation is strongly advised. Strongly advised to continue aspirin, Plavix, lisinopril, beta rosas. Lipitor dosage increased to 80 mg from 40 mg. Patient will follow up with PMD . Patient will follow-up with cardiology Dr. Dominguez in 1 week.
[2017-12-14] MEDS: Pantoprazole 40 mg EC Tab PO SCH (06:51)
[2017-12-14 07:21] LABS: BASO # 0.01 K/mm3 (0.0-2.0); BASO % 0.1 % (0.0-3.0); EOS % 0.2 % (1.5-5.0); GRAN # 8.45 (1.4-6.5); GRAN % 70.6 % (50.0-68.0); HEMOGLOBIN 14.1 g/dL (14.0-18.0); LYMPH # 2.8 (1.2-3.4); LYMPH % 23.1 % (22.0-35.0); MEAN CELL VOLUME 91.6 fl (80.0-105.0); MEAN CORPUSCULAR HEMOGLOBIN 30.5 pg (25.0-35.0); MEAN CORPUSCULAR HGB CONC 33.3 g/dl (31.0-37.0); MEAN PLATELET VOLUME 9.8 fl (7.0-11.0); MONO # 0.7 (0.1-0.6); RBC 4.62 10^6/uL (3.5-6.1); RED CELL DISTRIBUTION WIDTH 12.8 % (11.5-14.5)
[2017-12-14 08:19] LABS: ALB/GLOB RATIO 1.3 (1.1-1.8); ALBUMIN 3.7 g/dL (3.0-4.8); ALT/SGPT 37 U/L (7-56); AST/SGOT 42 U/L (17-59); BLOOD UREA NITROGEN 14 mg/dL (7-21); CALCIUM 9.3 mg/dL (8.4-10.5); GFR AFRICAN-AMERICAN > 60; GFR NON-AFRICAN AMERICAN > 60; MAGNESIUM 1.9 mg/dL (1.7-2.2)
[2017-12-14 09:07] VITALS: BP 138/72
[2017-12-14 10:25] VITALS: PULSE 89
== END 2017-12-14 11:20 | disposition home or self-care (01) ==
LOC: ED 00:48 → ERH 02:35 → 3RSO 03:57 → 2RNO 16:36
PROVIDERS: ADMIT Internal Medicine; ATTEND Internal Medicine
DX: I21.4 Non-ST elevation (NSTEMI) myocardial infarction (principal); I25.5 Ischemic cardiomyopathy; I25.10 Atherosclerotic heart disease of native coronary artery without angina pectoris; T82.855A Stenosis of coronary artery stent, initial encounter; Y83.1 Surgical operation with implant of artificial internal device as the cause of abnormal reaction of the patient, or of later complication, without mention of misadventure at the time of the procedure; I10 Essential (primary) hypertension; F17.210 Nicotine dependence, cigarettes, uncomplicated; E78.5 Hyperlipidemia, unspecified; R73.02 Impaired glucose tolerance (oral); M77.9 Enthesopathy, unspecified; M25.512 Pain in left shoulder; E78.00 Pure hypercholesterolemia, unspecified; E11.9 Type 2 diabetes mellitus without complications; Z79.02 Long term (current) use of antithrombotics/antiplatelets
CPT/HCPCS: 36415; 71045; 80053; 80061; 82550; 82553; 83036; 83615; 83735; 84100; 84484; 85025; 85175; 85610; 85730; 93005; 93458; 96374; 99152; 99153; 99285; C1725; C1769; C1874; C1887; C9600; C9601; G0378; J1327; J1644; J1885; J2250; J2270; J3010; J7030; J7040; Q9967

== ENCOUNTER 2018-10-27 08:10 | Day surgery (SDC) | payer BC ==
--- NOTE | 2018-10-24 21:42 | HP ---
DATE OF EXAM: 10/24/2018 REASON FOR ADMISSION: Left heart cath, possible angioplasty, abnormal stress test. BRIEF CLINICAL HISTORY: This is a 48-year-old male with past medical history of hypertension, hyperlipidemia, coronary artery disease, status post multiple stents in the past, total 7 stents, who had a stress test that was abnormal, so the patient is scheduled for elective cardiac cath, possible angioplasty. PAST MEDICAL HISTORY: History of coronary artery disease, status post multiple stents, hypertension, and hyperlipidemia. SOCIAL HISTORY: Denies smoking. Denies any history of alcohol abuse. RECENT CARDIAC WORKUP: As follows; the patient had stress test dated 10/02/2018 that shows probable abnormal myocardial perfusion study, partially reversible inferior and apical defects suggestive of ischemia. When comparison made from 07/11/2016, these changes appeared new. The patient had an echocardiography on 10/02/2018 that showed left ventricle size is normal, ejection fraction 55%, right ventricle size is normal, mild mitral regurgitation, trace tricuspid regurgitation, no pericardial effusion. RV systolic pressure is 19, calculated ejection fraction 55%. CURRENT MEDICATIONS: The patient is taking Ambien 10 mg daily, metoprolol tartrate 25 mg twice a day, lisinopril 10 mg daily, isosorbide 30 mg daily, clopidogrel 75 mg daily, atorvastatin 80 mg daily, aspirin 81 mg daily. REVIEW OF SYSTEMS: As per HPI. PHYSICAL EXAMINATION: As follows; VITAL SIGNS: Height of the patient 5 feet 6 inches, weight of the patient is 220 pounds, body mass index 36 kg/m2. Rest of the vitals: Temperature afebrile, heart rate 80, and blood pressure 130/80. HEENT: PERRLA. Extraocular muscles intact. NECK: Supple. No carotid bruit or thyromegaly. CHEST: Clear to auscultation. HEART: S1 and S2 regular. ABDOMEN: Soft. EXTREMITIES: Clubbing and cyanosis negative. LABORATORY DATA: Pending. IMPRESSION: A 48-year-old male with past medical history significant for multiple stents, total 7 stents in the past, history of diabetes, hypertension and hyperlipidemia, admitted for elective cardiac catheterization, possible angioplasty because of abnormal stress test dated 10/02/2018; shows apical and inferior defects suggestive of ischemia, ejection fraction calculated at 44%; when comparison made from 07/11/2016, it appears new. The patient had echocardiography on 10/02/2018 that showed ejection fraction 55% by echocardiogram, normal right ventricle, mild mitral regurgitation, trace tricuspid regurgitation, RV systolic pressure 19. RECOMMENDATIONS: We will load with aspirin and Plavix. We will wait for the blood workup. If the blood workup is available and acceptable, we will proceed for cardiac catheterization. Risks, benefits and alternatives were explained to the patient and the patient agreed. We will proceed for cardiac catheterization. Buffy Dominguez MD
[2018-10-27 08:49] LABS: BASO # 0.05 K/mm3 (0.0-2.0); BASO % 0.7 % (0.0-3.0); EOS # 0.2 (0.0-0.7); GRAN # 3.89 (1.4-6.5); GRAN % 50.9 % (50.0-68.0); HEMOGLOBIN 14.6 g/dL (14.0-18.0); LYMPH # 2.9 (1.2-3.4); LYMPH % 37.4 % (22.0-35.0); MEAN CORPUSCULAR HEMOGLOBIN 30.7 pg (25.0-35.0); MEAN CORPUSCULAR HGB CONC 33.4 g/dl (31.0-37.0); MEAN PLATELET VOLUME 9.3 fl (7.0-11.0); MONO # 0.6 (0.1-0.6); RBC 4.75 10^6/uL (3.5-6.1); RED CELL DISTRIBUTION WIDTH 12.7 % (11.5-14.5); WHITE BLOOD COUNT 7.6 10^3/uL (4.5-11.0)
[2018-10-27 08:54] VITALS: O2SAT 100
[2018-10-27 08:58] LABS: INR 0.97; PARTIAL THROMBOPLASTIN TIME 27.2 Seconds (25.1-36.5); PROTHROMBIN TIME 11.2 SECONDS (9.4-12.5)
[2018-10-27 09:11] LABS: BLOOD UREA NITROGEN 12 mg/dL (7-21); CALCIUM 8.9 mg/dL (8.4-10.5); GFR NON-AFRICAN AMERICAN > 60; HDL CHOLESTEROL 37 mg/dL (29-60)
[2018-10-27 09:17] LABS: LDL CHOLESTEROL 117 mg/dL (0-129)
[2018-10-27] MEDS ORDERED: Lidocaine 2% Inj (20ml) ONE (09:56)
[2018-10-27] MEDS ORDERED: Verapamil 2 ML ONE (09:57)
[2018-10-27] MEDS ORDERED: Iodixanol 320 MG/ML 200 ML BOTTLE IV ONE (09:58)
[2018-10-27] MEDS ORDERED: Iodixanol 320 MG/ML 100 ML BOTTLE IV ONE (09:58)
[2018-10-27] MEDS ORDERED: Iohexol 350mgl/ml 50 ML ONE (09:58)
[2018-10-27] MEDS ORDERED: Midazolam 2 MG/2 ML VIAL ONE ×2 (10:39→10:52)
[2018-10-27] MEDS ORDERED: Eptifibatide 20 mg/10mL Inj IVP ONE (11:12)
[2018-10-27] MEDS ORDERED: Sodium Chloride 0.9% 1,000 ML IV SCH (12:30)
--- NOTE | 2018-10-27 13:17 | CPOSTOP ---
DATE: 10/27/2018 CARDIOVASCULAR LAB POST PROCEDURE NOTE PHYSICIAN: Dr. Farheen Dominguez. HAULING CONTRACTOR: Lizeth Dobbins, non destructive evaluation technician, [facility]. TYPE OF ANESTHESIA: Conscious sedation, total 4 mg of Versed and 200 of fentanyl, given periodically. Started 1 mg of Versed and 50 of fentanyl. PRE-PROCEDURE DIAGNOSES: Unstable angina, coronary artery disease, status post seven stent total placed over a period of time and now has a recent abnormal stress test. PROCEDURE PERFORMED: 1. Left heart catheterization. 2. Stenting of mid LAD. 3. Plain balloon angioplasty of distal LAD. 4. PRU ..227, the patient is a resistant to Plavix. FINAL DIAGNOSES: In-stent restenosis of left anterior descending 90%; in-stent restenosis of mid right coronary artery, multiple stenosis; patent stent circumflex, preserved left ventricular function. The patient is resistant to Plavix. Multivessel coronary artery disease. POST PROCEDURE CONDITION: The patient's condition is stable. VASCULAR ACCESS SITE: Left radial. CLOSURE DEVICE: TR Band. TOTAL RADIATION DOSE: 78773.60. TOTAL FLUORO TIME: 16.6 minutes. Buffy Dominguez MD [facility]
--- NOTE | 2018-10-27 13:34 | CARD ---
APPROVED REPORT Date of service: 10/27/2018 EKG Measurement Heart [id number] <Conclusion> Marked sinus bradycardia Possible Inferior infarct, age undetermined T wave abnormality, consider lateral ischemia Abnormal ECG
[2018-10-27] MEDS ORDERED: Bacitracin 500 Units/gm Oint Foilpak UD ONE ×2 (13:36→13:37)
--- NOTE | 2018-10-27 13:53 | CARD ---
APPROVED REPORT Date of service: 10/27/2018 EKG Measurement Heart [id number] ID [id number] <Conclusion> Sinus bradycardia Nonspecific T wave abnormality Abnormal ECG
[2018-10-27 16:31] LABS: BASO # 0.03 K/mm3 (0.0-2.0); BASO % 0.4 % (0.0-3.0); EOS # 0.2 (0.0-0.7); GRAN # 4.26 (1.4-6.5); GRAN % 53.5 % (50.0-68.0); HEMOGLOBIN 13.8 g/dL (14.0-18.0); LYMPH # 2.7 (1.2-3.4); MEAN CELL VOLUME 91.5 fl (80.0-105.0); MEAN CORPUSCULAR HEMOGLOBIN 30.8 pg (25.0-35.0); MEAN CORPUSCULAR HGB CONC 33.7 g/dl (31.0-37.0); MEAN PLATELET VOLUME 9.3 fl (7.0-11.0); MONO # 0.8 (0.1-0.6); MONO % 10.1 % (1.0-6.0); RBC 4.48 10^6/uL (3.5-6.1); RED CELL DISTRIBUTION WIDTH 12.7 % (11.5-14.5)
[2018-10-27 16:39] LABS: BLOOD UREA NITROGEN 11 mg/dL (7-21); CALCIUM 8.8 mg/dL (8.4-10.5); GFR NON-AFRICAN AMERICAN > 60
--- NOTE | 2018-10-27 17:45 | CARD ---
APPROVED REPORT Date of service: 10/27/2018 Procedure(s) performed: Left Heart Catheterization PTCA with Stenting of Mid LAD with TRINIDAD PTCA with Balloon Angioplasty of Distal LAD PRU....227 ( pt is resistance to Plavix). HISTORY The patient is a 48 year-old male with a history of : most recent EF: 44%%. (EF Method: RADIONUCLIDE), peripheral vascular disease, previous diagnostic cath, tobacco history() : The patient is a former smoker , previous PCI (The PCI date was 12/13/2017), hypertension , dyslipidemia , Hx of Multiple stents 6-7 stents in ther past, who had an abnormal stress test apical and inferior ischemia.. INDICATION The indication(s) include : positive stress test. CASE TECHNIQUE The patient was brought electively to the Cardiac Catheterization Laboratory in a fasting state and was prepped and draped in a sterile manner. The left wrist was infiltrated with 2% Lidocaine subcutaneous anesthesia. A 6FR GLIDESHEATH ACCESS KIT sheath was inserted into the left radial artery without difficulty. Coronary angiography was performed using coronary diagnostic catheters. The left coronary system was accessed and visualized with a Diagnostic ,5F JL 4 CATH DXT 100 CM catheter. The right coronary system was accessed and visualized with a Diagnostic ,5 Fr JR 4 catheter. The left ventricle was accessed and visualized with a 5F PIGTAIL 145 CATH DXT 110 CM catheter. Left ventricular/Aortic Valve gradient assessed on pullback. Left ventriculogram was performed in MCCORMICK projection. Closure device was deployed with a Fr TR Band (Large) without any complications. The patient tolerated the procedure well and there were no complications associated with the procedure. Vessel Analysis The patient's coronary anatomy is right dominant. The left main coronary artery is a medium size vessel with diffuse calcification noted throughout this vessel and without significant stenosis. There is a 30-40% stenosis in the distal segment. The left main bifurcates to the left anterior descending and circumflex. The left anterior descending artery is a medium size vessel with diffuse calcification noted throughout this vessel and with significant stenosis. There is a 90% stenosis in the mid segment. instent Restenosis and Also Distal LAD has multiple stenoses 90% , till near [place]. The first diagonal branch is a small size vessel with diffuse calcification noted throughout this vessel and without significant stenosis. The second diagonal branch is a small size vessel with diffuse calcification noted throughout this vessel and without significant stenosis. The third diagonal branch is a small size vessel with diffuse calcification noted throughout this vessel and without significant stenosis. The circumflex artery is a large size vessel with diffuse calcification noted throughout this vessel and without significant stenosis. There is a 30% stenosis in the mid segment. instent restenosis, and Very distal at bifurcation 70-80% stenosis. The first obtuse marginal branch is a small size vessel with diffuse calcification noted throughout this vessel and without significant stenosis. The second obtuse marginal branch is a small size vessel with diffuse calcification noted throughout this vessel and without significant stenosis. The third obtuse marginal branch is a small size vessel with diffuse calcification noted throughout this vessel and without significant stenosis. The right coronary artery is a medium size vessel with diffuse calcification noted throughout this vessel and with significant stenosis. There is a 80% stenosis in the proximal segment. Mid RCA has 90% Instent restenosis, and distal RCA has 90% stenosis. The right posterior descending artery is a small size vessel with diffuse calcification noted throughout this vessel and without significant stenosis. The right posterolateral branch is a small size vessel with diffuse calcification noted throughout this vessel and without significant stenosis. Left Ventricle The left ventricle is borderline in size with normal contractility. There was no cardiomyopathy. The left ventricular ejection fraction is estimated to be 55%. The left ventricular end diastolic pressure is 18 mmHg. There was no gradient across the aortic valve upon pullback. PCI Technique Lesion Anticoagulation was achieved with Heparin and integrellin Two bolluses. Percutaneous coronary intervention was performed on the mid left anterior descending artery segment. The lesion stenosis prior to intervention was 90% with ARON 2 flow. A 6 Fr JL 4 Guide Catheter was used to engage the ostium. A Luge 182 Interventional Guidewire was used to cross the lesion. BALLOON DILATION A Balloon catheter 2.25 x 15 mm Sprinter RX was inserted and inflated up to 10.00atm for 48seconds. After that scorring Balloon 2.5/15 used to prepare before stenting and inflated upto 10 atmosphere f0r 30 seconds times three. STENT DEPLOYMENT A drug-eluting stent STENT RESOLUTE MARICRUZ 2.75 X30 was inserted and inflated up to 14.00atm for 15seconds. POST STENT DEPLOYMENT BALLOON DILATION A Balloon catheter 3.0 x 21 mm Sprinter NC was inserted and inflated up to 18.00atm for 17seconds. Final angiography reveals 0 % stenosis with ARON 3 flow. PCI Technique Lesion 2 Percutaneous Coronary Intervention was performed on the distal left anterior descending artery segment. The lesion stenosis prior to intervention was 90% with ARNO 2 flow. A 6 Fr XB 3.5 Guide Catheter was used to engage the ostium. A Luge 182 Interventional Guidewire was used to cross the lesion. BALLOON DILATION A Balloon catheter 2.25 x 15 mm Sprinter RX was inserted and inflated up to 8-10atm for 30seconds. multiple inflation in distal LAD done Final angiography reveals 10-20 % stenosis with ARON 3 flow. Conclusion Multi veesel CAD, patent stent In CX Instent restenoses in Mid LAD and Mid RCA Left main 30-40% stenoses Distal LAD/Cx/ RCA are very poor target for CABG, high Risk for early grafts occlusion. Preserved Lv FX. EF-55%, EDP_18 mmof Hg. Successful PTCA of MID LAD with TRINIDAD after preparing with scorring Balloon and POBNA of Distal LAD. PRU...227 ( pt is resistance to plavix) Recommendations Aggressive Medical TherapyCardiac Risk Reduction Program Weight Loss Reduction Program Start Brilinta 90 mg po BId with Baby asa 81 mg po daily for one year. Staged PTCA of RCA Proxmal Mid And Distal on 11/24/2018 with RFA aaproach and Side holes guider. CC; DRs. Varela / Navin.
[2018-10-27 17:55] VITALS: BP 165/101
[2018-10-27 18:20] VITALS: PULSE 74; RESP 20; TEMP 97.9
== END 2018-10-27 20:33 | disposition home or self-care (01) ==
LOC: CATH 08:10 → 2RSO 14:39 → CATH 20:33
PROVIDERS: ATTEND Internal Medicine Cardiovascular Disease
DX: I25.110 Atherosclerotic heart disease of native coronary artery with unstable angina pectoris (principal); T82.855A Stenosis of coronary artery stent, initial encounter; I10 Essential (primary) hypertension; I08.1 Rheumatic disorders of both mitral and tricuspid valves; E78.5 Hyperlipidemia, unspecified; I73.9 Peripheral vascular disease, unspecified; Y83.1 Surgical operation with implant of artificial internal device as the cause of abnormal reaction of the patient, or of later complication, without mention of misadventure at the time of the procedure; Z79.02 Long term (current) use of antithrombotics/antiplatelets; Z87.891 Personal history of nicotine dependence; Z95.5 Presence of coronary angioplasty implant and graft
CPT/HCPCS: 36415; 80048; 80061; 85025; 85576; 85610; 85730; 86850; 86900; 93005; 93458; 99152; 99153; C1725 ×3; C1769 ×2; C1874; C1887 ×3; C9600; J1327; J1644 ×2; J2250; J3010; J7030; Q9966; Q9967 ×2

== ENCOUNTER 2018-11-24 06:31 | Day surgery (SDC) | payer BC ==
[2018-11-24 07:26] VITALS: O2SAT 98
[2018-11-24 08:07] LABS: BASO # 0.04 K/mm3 (0.0-2.0); BASO % 0.4 % (0.0-3.0); EOS # 0.2 (0.0-0.7); EOS % 2.4 % (1.5-5.0); HEMOGLOBIN 13.7 g/dL (14.0-18.0); LYMPH % 32.2 % (22.0-35.0); MEAN CORPUSCULAR HGB CONC 32.9 g/dl (31.0-37.0); MEAN PLATELET VOLUME 9.4 fl (7.0-11.0); MONO # 0.9 (0.1-0.6); MONO % 9.8 % (1.0-6.0); RBC 4.57 10^6/uL (3.5-6.1); WHITE BLOOD COUNT 9.2 10^3/uL (4.5-11.0)
[2018-11-24 08:14] LABS: INR 1.03; PARTIAL THROMBOPLASTIN TIME 30.4 Seconds (26.9-38.3); PROTHROMBIN TIME 11.6 SECONDS (9.4-12.5)
[2018-11-24 08:25] LABS: LDL CHOLESTEROL 80 mg/dL (0-129)
[2018-11-24 08:44] LABS: BLOOD UREA NITROGEN 14 mg/dL (7-21); CALCIUM 8.7 mg/dL (8.4-10.5); GFR NON-AFRICAN AMERICAN > 60; HDL CHOLESTEROL 33 mg/dL (29-60)
[2018-11-24] MEDS ORDERED: Phenylephrine 10 mg/ml Inj ONE (09:03)
[2018-11-24] MEDS ORDERED: Lidocaine 2% Inj (20ml) ONE (09:04)
[2018-11-24] MEDS ORDERED: Eptifibatide 20 mg/10mL Inj IVP ONE (09:06)
[2018-11-24] MEDS ORDERED: Iodixanol 320 MG/ML 200 ML BOTTLE IV ONE (09:06)
[2018-11-24] MEDS ORDERED: Iodixanol 320 MG/ML 100 ML BOTTLE IV ONE (09:06)
[2018-11-24] MEDS ORDERED: Iohexol 350mgl/ml 50 ML ONE (09:06)
[2018-11-24] MEDS ORDERED: Midazolam 2 MG/2 ML VIAL ONE (09:21)
[2018-11-24] MEDS ORDERED: Sodium Chloride 0.9% 1,000 ML IV SCH (10:45)
--- NOTE | 2018-11-24 11:08 | HP ---
DATE OF EXAM: 11/21/2018 REASON FOR ADMISSION: Left heart cath, possible angioplasty of right coronary artery from the right femoral approach with side holes catheter. BRIEF CLINICAL HISTORY: This is a 48-year-old male with past medical history significant for coronary artery disease, status post PTCA in the past. Most recently, the patient has cardiac catheterization and stenting on 10/27/2018. The patient had PTCA of mid LAD, plain balloon angioplasty, distal LAD, now the patient admitted for PTCA of RCA. Also at that time, the patient had PRU test which is sensitivity for Plavix, found to be patient resistant to Plavix, the patient was on Brilinta. PAST MEDICAL HISTORY: Significant for coronary artery disease status post most recently PTCA on 10/27/2018 of proximal LAD stent, plain balloon angioplasty, distal LAD. Prior to that, the patient had PTCA on 12/13/2017, history of multiple stent, 6 to 7 stent in the past, was admitted last time with abnormal stress test, so the patient underwent cardiac catheterization. Past history is also significant for hypertension, hyperlipidemia. SOCIAL HISTORY: Denies any history of alcohol abuse. RECENT CARDIAC WORKUP FOLLOWS: The patient had cardiac catheterization most recently on 10/27/2018 that revealed multivessel coronary artery disease, dominant RCA, left main 30% to 40% stenosis LAD, 90% stenosis in the proximal and mid segment distal LAD, multiple stenosis 90%, circumflex 70% to 80% stenosis, very distal at the bifurcation, mid segment 30% stenosis. Right coronary artery medium size vessels 80% stenosis proximal, mid RCA 90% stenosis, RCA 90% stenosis. LV gram shows ejection fraction of 55%, EDP in the range of 18. CURRENT MEDICATION: The patient is taking Ambien 10 mg daily, Brilinta 90 mg daily, metoprolol tartrate 25 mg p.o. b.i.d., lisinopril 10 mg daily, isosorbide 30 mg daily, atorvastatin 80, aspirin 81 mg daily. ALLERGIES: NO KNOWN DRUG ALLERGIES. REVIEW OF SYSTEMS: As per HPI. PHYSICAL EXAMINATION: As follows: VITAL SIGNS: Height of the patient is 5 feet 7 inches, the patient 220 pounds, body mass index 36 kg/m2. Rest of the vitals, temperature afebrile, heart rate 80, blood pressure 130/80. HEENT: PERRLA. Extraocular muscles intact. NECK: Supple. No carotid bruit. No thyromegaly. CHEST: Clear to auscultation. HEART: S1 and S2 regular. ABDOMEN: Soft. EXTREMITIES: Clubbing and cyanosis negative. LABORATORY DATA: Blood workup pending. IMPRESSION: A 48-year-old male with past medical history significant for multiple stents in the past. Most recently, the patient's stent on 10/27/2017 of proximal left anterior descending and balloon angioplasty of distal left anterior descending. At that time PRU test found to be the patient is resistant to Plavix, PRU value was 227. The patient was started on Brilinta. The patient had prior 7 stent to this in multiple occasions and including the last stent, he has total 8 stents in the coronary. Preserved left ventricular function ejection fraction of 55%. RECOMMENDATIONS: We load with aspirin, Brilinta, follow the lab. If it is okay will go from the right femoral approach with side holes catheter for right coronary artery. We will follow with you Thank you Dr. Valdes for providing us the opportunity in taking care of the patient Shaji Pettit. Buffy Dominguez MD [facility]
--- NOTE | 2018-11-24 11:34 | CPOSTOP ---
DATE: 11/24/2018 CARDIOVASCULAR LAB POSTPROCEDURE NOTE PHYSICIAN: Buffy Dominguez MD MANAGER ORANGE: HARRIETT Otto. TYPE OF ANESTHESIA: Moderate conscious sedation. Total 2 mg of Versed and 100 of fentanyl given. PRE-PROCEDURE DIAGNOSES: Unstable angina for staged percutaneous transluminal coronary angioplasty of right coronary artery. PROCEDURE PERFORMED: 1. Left heart catheterization. 2. Stenting of proximal and mid RCA. 3. Plain balloon angioplasty of distal RCA complex. FINDINGS: Single vessel critical disease, patent previous extended LAD and circumflex. FINAL DIAGNOSIS: Critical one vessel disease. POST PROCEDURE CONDITION: Stable. VASCULAR ACCESS SITE: Right femoral groin. CLOSURE DEVICE: Angio-Seal. TOTAL RADIATION DOSE: 08843.9 milligray unit. FLUORO TIME: 17.9 minutes. Buffy Dominguez MD
[2018-11-24 13:08] VITALS: TEMP 97.9
--- NOTE | 2018-11-24 13:46 | CARD ---
APPROVED REPORT Date of service: 11/24/2018 EKG Measurement Heart [id number] <Conclusion> Normal sinus rhythm Possible Inferior infarct, age undetermined Abnormal ECG
[2018-11-24 15:09] VITALS: RESP 20
[2018-11-24 15:10] VITALS: BP 138/80; PULSE 70
[2018-11-24 16:01] LABS: BASO # 0.02 K/mm3 (0.0-2.0); BASO % 0.2 % (0.0-3.0); EOS # 0.2 (0.0-0.7); HEMOGLOBIN 13.2 g/dL (14.0-18.0); LYMPH # 3.2 (1.2-3.4); LYMPH % 39.2 % (22.0-35.0); MEAN CELL VOLUME 91.3 fl (80.0-105.0); MEAN CORPUSCULAR HEMOGLOBIN 30.3 pg (25.0-35.0); MEAN CORPUSCULAR HGB CONC 33.2 g/dl (31.0-37.0); MEAN PLATELET VOLUME 9.3 fl (7.0-11.0); MONO # 0.6 (0.1-0.6); MONO % 7.2 % (1.0-6.0); RBC 4.36 10^6/uL (3.5-6.1); RED CELL DISTRIBUTION WIDTH 12.9 % (11.5-14.5); WHITE BLOOD COUNT 8.2 10^3/uL (4.5-11.0)
[2018-11-24 16:11] LABS: BLOOD UREA NITROGEN 12 mg/dL (7-21); CALCIUM 8.4 mg/dL (8.4-10.5); GFR NON-AFRICAN AMERICAN > 60
--- NOTE | 2018-11-24 18:25 | CARD ---
APPROVED REPORT Date of service: 11/24/2018 Procedure(s) performed: Left Heart Catheterization PTCA with Stenting of Proximal RCA with TRINIDAD PTCA with Stenting of Mid RCA with TRINIDAD PTCA with Balloon Angioplasty of Distal RCA HISTORY The patient is a 48 year-old male with a history of : most recent EF: 55%. (EF Method: LVG), peripheral vascular disease, previous diagnostic cath, tobacco history() : The patient is a former smoker , previous PCI (The PCI date was 10/27/2018), hypertension , dyslipidemia , For stged procedure. INDICATION The indication(s) include : For staged PTCa of RCA. CASE TECHNIQUE The patient was brought electively to the Cardiac Catheterization Laboratory in a fasting state and was prepped and draped in a sterile manner. The right femoral groin was infiltrated with 2% Lidocaine subcutaneous anesthesia. A 6 Fr x 11 cm Deborah sheath was inserted into the right femoral artery without difficulty. Coronary angiography was performed using coronary diagnostic catheters. The left coronary system was accessed and visualized with a Diagnostic catheter. The right coronary system was accessed and visualized with a Guided 4.0 with side holes catheter. The left ventricle was accessed and visualized with a 6 Fr JR 3.5 SH catheter. Left ventricular/Aortic Valve gradient assessed on pullback. Left ventriculogram was performed in MCCORMICK projection. Closure device was deployed with a 6 Fr Angio-Seal without any complications. The patient tolerated the procedure well and there were no complications associated with the procedure. Vessel Analysis The patient's coronary anatomy is right dominant. The left main coronary artery is a small size vessel with diffuse calcification noted throughout this vessel and without significant stenosis. There is a 30-40% stenosis in the mid segment. The left main bifurcates to the left anterior descending and circumflex. The left anterior descending artery is a medium size vessel with diffuse calcification noted throughout this vessel and without significant stenosis. patent previous PTCAA sites The first diagonal branch is a small size vessel with diffuse calcification noted throughout this vessel and without significant stenosis. The second diagonal branch is a small size vessel with diffuse calcification noted throughout this vessel and without significant stenosis. The third diagonal branch is a small size vessel with diffuse calcification noted throughout this vessel and without significant stenosis. The circumflex artery is a large size vessel with diffuse calcification noted throughout this vessel and without significant stenosis. patent stent in Mid segment The first obtuse marginal branch is a small size vessel with diffuse calcification noted throughout this vessel and without significant stenosis. The second obtuse marginal branch is a small size vessel with diffuse calcification noted throughout this vessel and without significant stenosis. The third obtuse marginal branch is a small size vessel with diffuse calcification noted throughout this vessel and without significant stenosis. The right coronary artery is a medium size vessel with diffuse calcification noted throughout this vessel and with significant stenosis. There is a 90% stenosis in the proximal segment. Mid RCA totally occluded. Left Ventricle The left ventricle is borderline enlarged in size with mildly decreased contractility. Ischemic cardiomyopathy. The left ventricular ejection fraction is estimated to be 45-50%%. The left ventricular end diastolic pressure is 18 mmHg. There was no gradient across the aortic valve upon pullback. PCI Technique Lesion Anticoagulation was achieved with Heparin. Percutaneous coronary intervention was performed on the mid right coronary artery. The lesion stenosis prior to intervention was 100% with ARON 0 flow. A 6 Fr JR 4.0 SH Guide Catheter was used to engage the ostium. A Luge 182 and choice Interventional Guidewire was used to cross the lesion. BALLOON DILATION A Balloon catheter 2.0 x 15 mm Sprinter RX was inserted and inflated up to 8.00atm for 9seconds. STENT DEPLOYMENT A drug-eluting stent STENT RESOLUTE MARICRUZ 2.75 X26 was inserted and inflated up to 14.00atm for 11seconds. Final angiography reveals 0 % stenosis with ARON 3 flow. PCI Technique Lesion 2 Percutaneous Coronary Intervention was performed on the proximal right coronary artery. The lesion stenosis prior to intervention was 90% with ARON 2 flow. A 6 Fr JR 4.0 SH Guide Catheter was used to engage the ostium. A Luge 182 and Choice PT Interventional Guidewire was used to cross the lesion. BALLOON DILATION A Balloon catheter 2.0 x 15 mm Sprinter RX was inserted and inflated up to 12.00atm for 31seconds. STENT DEPLOYMENT A drug-eluting stent STENT RESOLUTE MARICRUZ 2.75 X38 was inserted and inflated up to 12.00atm for 31seconds. Final angiography reveals 0 % stenosis with ARON 3 flow. PCI Technique Lesion 3 Percutaneous Coronary Intervention was performed on the distal right coronary artery. The lesion stenosis prior to intervention was 80-90% with ARON flow. A 6 Fr JR 4.0 SH Guide Catheter was used to engage the ostium. A 0.014 x 182 cm Choice PT Extra Support Interventional Guidewire was used to cross the lesion. BALLOON DILATION A Balloon catheter 2.0 x 15 mm Sprinter RX was inserted and inflated up to 6-8atm for 20-30seconds. Final angiography reveals 20 % stenosis with ARON 3 flow. Conclusion Patent Stents in LAD and CX Proximal RCA 90%, mid to Distal RCA totally occluded Mildly decreased LV FX. EF-45-50%, EDP_20-25 mmof Hg. Successful PTCA with TRINIDAD of Proximal and Mid RCA, and POBA of Distal RCA. Recommendations Smoking Cessation Cardiac Rehabilitation Referral Aggressive Medical TherapyCardiac Risk Reduction Program Weight Loss Reduction Program ASA and Brilintal for one year( Pt is resistance to Plavix). CC; drs. Varela / Navin.
== END 2018-11-24 17:03 | disposition home or self-care (01) ==
LOC: CATH 06:31 → 2RSO 10:45 → CATH 17:03
PROVIDERS: ATTEND Internal Medicine Cardiovascular Disease
DX: I25.110 Atherosclerotic heart disease of native coronary artery with unstable angina pectoris (principal); I25.5 Ischemic cardiomyopathy; I25.82 Chronic total occlusion of coronary artery; E78.5 Hyperlipidemia, unspecified; I10 Essential (primary) hypertension; I73.9 Peripheral vascular disease, unspecified; Z87.891 Personal history of nicotine dependence; Z79.02 Long term (current) use of antithrombotics/antiplatelets; Z95.5 Presence of coronary angioplasty implant and graft
CPT/HCPCS: 36415; 80048; 80061; 85025; 85175; 85610; 85730; 86850; 86900; 93005; 93458; 99152; 99153; C1725; C1760; C1769 ×3; C1874 ×2; C1887 ×2; C2629; C9600; J1327; J1644 ×2; J2250; J3010; J7030; J7040; Q9966; Q9967